=== PATIENT | male | born 1995 | race Two or more races ===

== ENCOUNTER 2017-07-16 10:00 | Emergency (ER) | payer SELFPAY ==
[2017-07-16] MEDS ORDERED: ONDANSETRON 4 MG ODT TABLET SL ONE (10:22)
--- NOTE | 2017-07-16 10:25 | Emergency Department Record ---
History of Present Illness - General Chief complaint: Hypergylcemia Stated complaint: BLOOD SUGAR HIGH Time Seen by Provider: 07/16/17 10:16 Source: Patient Mode of Arrival: Ambulatory Limitations: No limitations - History of Present Illness Initial comments: The patient is here due to not feeling well this AM. He is a diabetic and did check his blood sugar at 4am and it was 350. He did take some insulin and now it is improved. The patient has had some nausea and vomiting this AM but feels better now. He denies any AP, nausea, diarrhea or blurred vision. He did have some generalized weakness earlier but that is better now. His accucheck was just read at 240. MD Complaint: Generalized weakness Onset/Timin -: Hour(s) Location: Generalized Improves with: None Worsens with: None Associated Symptoms: Other - [place] Coma Scale Eye Response: (4) Open spontaneously Motor Response: (6) Obeys commands Verbal Response: (5) Oriented Nalini Total: 15 - Related Data Home Medications Medication Instructions Recorded Confirmed Last Taken Insulin Aspart [Novolog] 1 unit SQ ASDIR 07/16/17 07/16/17 07/16/17 Insulin Glargine,Hum.rec.anlog 22 unit SQ QHS 07/16/17 07/16/17 07/15/17 [Lantus] Previous Rx's Medication Instructions Recorded Ondansetron [Zofran Odt] 4 mg SL .Q4-6H PRN #12 tab.rapdis 07/16/17 Allergies Allergy/AdvReac Type Severity Reaction Status Date / Time amoxicillin Allergy Severe SWELLING Verified 07/16/17 10:16 (GENERAL) Sulfa (Sulfonamide Allergy Severe SWELLING Verified 07/16/17 10:16 Antibiotics) (GENERAL) Travel Screening - Travel/Exposure Within Last 30 Days Have you traveled within the last 30 days?: No Review of Systems Constitutional: Reports: Malaise. Denies: Chills, Fever Eyes: Denies: Eye discharge ENT: Denies: Congestion Respiratory: Denies: Cough, Dyspnea Past Medical History - SOCIAL HISTORY Smoking Status: Current every day smoker Alcohol Use: None Drug Use: None - RESPIRATORY Hx Respiratory Disorders: No - CARDIOVASCULAR Hx Cardio Disorders: No - NEURO Hx Neuro Disorders: No - GI Hx GI Disorders: No - Hx Genitourinary Disorders: No - ENDOCRINE Hx Endocrine Disorders: Yes Hx Diabetes: Yes - MUSCULOSKELETAL Hx Musculoskeletal Disorders: No - PSYCH Hx Psych Problems: No - HEMATOLOGY/ONCOLOGY Hx Hematology/Oncology Disorders: No Family Medical History Any Significant Family History?: No Physical Exam - General General Appearance: Alert, Oriented x3, Cooperative, No acute distress - Head Head exam: Atraumatic, Normocephalic, Normal inspection - Eye Eye exam: Normal appearance, PERRL - ENT Throat exam: Normal inspection. negative: Tonsillar erythema, Tonsillar exudate - Neck Neck exam: Normal inspection, Full ROM. negative: Tenderness - Respiratory Respiratory exam: Normal lung sounds bilaterally. negative: Respiratory distress - Cardiovascular Cardiovascular Exam: Regular rate, Normal rhythm, Normal heart sounds - GI/Abdominal GI/Abdominal exam: Soft, Normal bowel sounds. negative: Distended, Rigid, Tenderness - Extremities Extremities exam: Normal inspection, Full ROM, Normal capillary refill. negative: Tenderness - Neurological Neurological exam: Alert, Normal gait, Oriented X3. negative: Abnormal gait, Motor sensory deficit Course Vital Signs 07/16/17 10:12 Temperature 98.5 F Pulse Rate 74 Respiratory 16 Rate Blood Pressure 120/84 Pulse Ox 98 - Reevaluation(s) Reevaluation #1: The patient is doing much better at this time. He feels well and his blood sugar is down to 162. He is ready for home. I did discuss the neg xrays with the patient also. 07/16/17 12:19 Medical Decision Making - Data Complexity MDM Data: Labs Ordered and/or Reviewed, X-Ray Ordered and/or Reviewed - Lab Data Result diagrams: 07/16/17 10:30 07/16/17 10:30 - Radiology Data Radiology results: Report reviewed (L Ribs: Neg.) Disposition Disposition: Discharge Clinical Impression: Hyperglycemia Disposition: Home, Self-Care Condition: (2) Stable Instructions: Diabetic Hyperglycemia (ED) Additional Instructions: Please continue your regular medicines and use Tylenol for pain. Please use Zofran for nausea. Please return to the ER for any elevated blood sugar, return of the nausea, or any vomiting. Prescriptions: Ondansetron [Zofran Odt] 4 mg SL .Q4-6H PRN #12 tab.rapdis PRN Reason: Nausea Forms: Patient Portal Access Time of Disposition: 12:21 Quality - Quality Measures Quality Measures: N/A - Blood Pressure Screening View Details: Yes Does Patient Have Any of the Following: No Blood Pressure Classification: Normal BP Reading Systolic Measurement: 109 Diastolic Measurement: 71 Screening for High Blood Pressure: < Normal BP, F/U Not Required > [[id number]]
[2017-07-16 10:36] LABS: BASO % 0.2 % (0-6); EOS % 1.7 % (0-6); GRAN % 74.5 % (47-80); HEMATOCRIT 44.6 % (42.0-52.0); HEMOGLOBIN 15.1 gm/dl (14.0-18.0); LYMPH % 18.2 % (16-45); MEAN CELL VOLUME 87.5 fl (81-97); MEAN CORPUSCULAR HEMOGLOBIN 29.6 pg (27-33); MEAN CORPUSCULAR HGB CONC 33.9 g/dl (32-36); MEAN PLATELET VOLUME 11.4 fl (7.4-10.4); MONO % 5.4 % (0-9); PLATELET COUNT 191 K/uL (130-400); RED CELL DISTRIBUTION WIDTH 13.3 % (11.5-14.5); WHITE BLOOD COUNT W/O DIFF 6.5 K/uL (4.2-12.2)
[2017-07-16 10:51] LABS: URINE APPEARANCE CLEAR; URINE BILIRUBIN NEGATIVE (NEGATIVE); URINE BLOOD NEGATIVE (NEGATIVE); URINE COLOR YELLOW; URINE KETONE 15 mg/dL (NEGATIVE); URINE LEUKOCYTE ESTERASE NEGATIVE (NEGATIVE); URINE NITRITE NEGATIVE (NEGATIVE); URINE PROTEIN TRACE (NEGATIVE); URINE UROBILINOGEN 0.2 E.U./dL (0.20 - 1.00)
[2017-07-16 10:54] LABS: URINE GLUCOSE (UA) >=1000 mg/dL (NEGATIVE)
[2017-07-16] MEDS ORDERED: 0.9 % SODIUM CHLORIDE 1,000 ML BAG IV ONE (10:59)
[2017-07-16 11:09] LABS: BLOOD UREA NITROGEN 12 mg/dL (6-20); CREATININE 0.7 mg/dL (0.7-1.2); EST GLOMERULAR FILTRATION RATE > 60 mL/min
[2017-07-16 11:12] LABS: GLUCOSE,RANDOM 261 mg/dL (74-109)
--- NOTE | 2017-07-16 13:08 | RADIOLOGY REPORT ---
EXAM: PA CHEST AND LEFT RIBS HISTORY: PAIN. TECHNIQUE: A single PA view of the chest and multiple views of the left rib cage were performed. FINDINGS: The heart size is normal. The lung osullivan are clear. No pneumothorax. No rib fracture deformity. IMPRESSION: NEGATIVE PA CHEST AND LEFT RIB SERIES. JOB NUMBER: [id number] MTDD
== END 2017-07-16 12:36 | disposition home or self-care (01) ==
LOC: ER 10:00
DX: E11.65 Type 2 diabetes mellitus with hyperglycemia (principal); R07.81 Pleurodynia; R53.1 Weakness; R11.2 Nausea with vomiting, unspecified; Z79.4 Long term (current) use of insulin
CPT/HCPCS: 36416; 80048; 81003; 82948; 85025; 96360; 99284; J7030